=== PATIENT | female | born 1975 | race Caucasian/White ===

== ENCOUNTER 2017-01-31 09:59 | Emergency (ER) | payer OTHER ==
[~2017-01-31] VITALS: Ht 172.7 cm; Wt 65.5 kg
[2017-01-31 10:01] VITALS: BP 114/78
[2017-01-31] MEDS ORDERED: DEXAMETHASONE 4 MG TABLET PO ONE (10:30)
[2017-01-31] MEDS ORDERED: HYDROcodone/APAP 7.5-325MG/15ML UDC PO ONE (10:30)
[2017-01-31] MEDS ORDERED: DEXAMETHASONE 4 MG TABLET ONE (10:41)
[2017-01-31] MEDS ORDERED: HYDROcodone/APAP 7.5-325MG/15ML UDC ONE (10:41)
== END 2017-01-31 10:59 | disposition home or self-care (01) ==
LOC: ED 10:55
DX: J02.0 Streptococcal pharyngitis (principal)
CPT/HCPCS: 87081; 87880; 99284